=== PATIENT | male | born 2000 | race Hispanic/Latino ===

== ENCOUNTER 2022-09-19 00:21 | Emergency (ER) | payer BC ==
[~2022-09-19] VITALS: Ht 172.7 cm; Wt 64.0 kg
[2022-09-19] MEDS ORDERED: IBUPROFEN 400 MG TABLET PO ONE (00:30)
[2022-09-19] MEDS ORDERED: ONDANSETRON 4MG INJ IVP ONE (00:30)
[2022-09-19] MEDS ORDERED: LACTATED RINGERS 1000ML 1,000 ML IV ONE (00:30)
[2022-09-19 01:27] LABS: BASOPHILS % (AUTO) 0.6 % (0.0-5.0); CREATININE 0.8 mg/dL (0.5-1.5); HEMATOCRIT 49.2 % (42-54); LYMPHOCYTES % (AUTO) 20.8 % (21.0-51.0); MEAN CORPUSCULAR HEMOGLOBIN 29.1 pg (27.0-33.0); MEAN CORPUSCULAR HGB CONC 33.7 g/dL (32.0-36.0); MEAN CORPUSCULAR VOLUME 86.2 fL (80-100); MONOCYTES % (AUTO) 6.1 % (3.0-13.0); NEUTROPHILS % (AUTO) 70.8 % (40.0-77.0); PLATELET COUNT (AUTO) 264 K/uL (130-400); POTASSIUM 3.3 mmol/L (3.5-5.1); RED BLOOD CELL COUNT(AUTO) 5.71 MIL/uL (4.50-6.20); RED CELL DISTRIBUTION WIDTH 12.9 % (11.0-15.5); WHITE BLOOD COUNT (AUTO) 7.3 K/uL (4.8-10.8)
[2022-09-19 01:41] LABS: ALBUMIN 4.5 g/dL (3.5-5.0); TOTAL PROTEIN, SERUM 7.6 g/dL (6.0-8.3)
[2022-09-19] MEDS ORDERED: CEFAZOLIN SODIUM 1 GM VIAL IVP STA (02:33)
[2022-09-19] MEDS ORDERED: KETOROLAC 30MG VIAL (30MG/ML) IVP ONE (03:00)
[2022-09-19 03:14] VITALS: BP 135/90
== END 2022-09-19 03:18 | disposition short-term general hospital (02) ==
LOC: EDH 00:21
DX: S02.32XA Fracture of orbital floor, left side, initial encounter for closed fracture (principal); H46.8 Other optic neuritis; H33.22 Serous retinal detachment, left eye; Z20.822 Contact with and (suspected) exposure to COVID-19; Y08.89XA Assault by other specified means, initial encounter; Y93.89 Activity, other specified; Y92.89 Other specified places as the place of occurrence of the external cause; Y99.8 Other external cause status
CPT/HCPCS: 99285; 70480; 96374; 71045; 96375; 87635; 96361; 82550; 83874; 84484; 80053; 85025; 36415; 70450; 72125; 70486; 93005; C9803; J7120; J0690; J2405; J1885